=== PATIENT | male | born 1970 | race Caucasian/White ===

== ENCOUNTER 2024-06-01 21:43 | Emergency (ER) | payer OTHER ==
[2024-06-01] MEDS: hydrALAZINE HCL 20 MG/ML 1 ML VIAL IVP STA (22:15)
[2024-06-02] MEDS: OXYMETAZOLINE 0.05% NASL SPRAY 1 SPRAY BOTTLE NASAL STA (00:22)
--- NOTE | 2024-06-02 00:56 | ED ---
[facility] - General Chief complaint: ENT Stated complaint: Nose Bleed Time Seen by Provider: 06/01/24 21:55 Source: patient Mode of arrival: ambulatory - History of Present Illness Initial comments: 53-year-old male presenting with chief complaint of nosebleed. The bleeding has been ongoing for about 45 minutes. This is a second nosebleed today. Patient takes aspirin, no other blood thinners. He denies any injury or trauma. Predominantly from the left nostril. No weakness or dizziness. No headache or vision changes. No light sensitivity. No chest pain or difficulty breathing. - Related Data Allergies Allergy/AdvReac Type Severity Reaction Status Date / Time No Known Allergies Allergy Verified 06/01/24 21:49 Review of Systems ROS Statement: Those systems with pertinent positive or pertinent negative responses have been documented in the HPI. ROS Other: All systems not noted in ROS Statement are negative. Past Medical History Past Medical History: Atrial Fibrillation, Hypertension Past Surgical History: No Surgical Hx Reported Smoking Status: Former smoker Past Alcohol Use History: Occasional Past Drug Use History: None Reported General Exam Limitations: no limitations General appearance: alert, in no apparent distress Head exam: Present: atraumatic, normocephalic Eye exam: Present: normal appearance, EOMI ENT exam: Present: mucous membranes moist, other (Bleeding from the left nostril) Neck exam: Present: normal inspection. Absent: meningismus Respiratory exam: Absent: respiratory distress Cardiovascular Exam: Present: regular rate Neurological exam: Present: alert, oriented X3 Psychiatric exam: Present: normal affect, normal mood Skin exam: Present: normal color Course Vital Signs 06/01/24 06/01/24 06/01/24 21:44 22:19 22:35 Temperature 97.3 F L Pulse Rate 70 71 74 Respiratory 20 Rate Blood Pressure 188/101 168/101 177/84 O2 Sat by Pulse 97 Oximetry 06/01/24 06/02/24 22:57 01:28 Temperature 98.3 F Pulse Rate 89 79 Respiratory 18 Rate Blood Pressure 162/80 152/81 O2 Sat by Pulse 98 Oximetry Medical Decision Making - Medical Decision Making 53-year-old male presenting with chief complaint of nosebleed ongoing for up 45 minutes. His second nosebleed today. He takes aspirin and no other blood thinners. On exam bleeding is from the left nostril primarily. Patient is hypertensive upon arrival. He is given 10 mg of hydralazine and blood pressure steadily improved. 10 mg of labetalol was ordered for his blood pressure 162/80, however on reassessment blood pressure was 152/81 and labetalol was held. Afrin was applied to the nostrils and nasal clamp was applied for 10 minutes. Upon removal of the nasal clamp bleeding did not resume, he was observed for 15 minutes and the bleeding remained controlled. He was provided with nasal clamp and Afrin for home. Instructed to follow-up with his PCP and legal document assistant regarding his blood pressure. He will hold his aspirin tonight. Discharged home. Follow-up with PCP. Report back to ER with any new or worsening symptoms. Discussed return parameters and answered all questions. Patient conveyed verbal understanding and agreed to the plan. I discussed this case in detail with my attending Dr. Butler Was pt. sent in by a medical professional or institution (, PA, COST CONTROLLER, urgent care, hospital, or custodial...) When possible be specific @ -No Did you speak to anyone other than the patient for history (EMS, parent, family, police, friend...)? What history was obtained from this source @ -No Did you review nursing and triage notes (agree or disagree)? Why? @ -I reviewed and agree with nursing and triage notes Were old charts reviewed (outside hosp., previous admission, EMS record, old EKG, old radiological studies, urgent care reports/EKG's, custodial records)? Report findings @ -No old charts were reviewed Differential Diagnosis (chest pain, altered mental status, abdominal pain women, abdominal pain men, vaginal bleeding, weakness, fever, dyspnea, syncope, headache, dizziness, GI bleed, back pain, seizure, CVA, palpatations, mental h ealth, musculoskeletal)? @ -Differential includes nosebleed induced by local trauma, hypertension, structural abnormality, this is not an all-inclusive list EKG interpreted by me (3pts min.). @ -As above X-rays interpreted by me (1pt min.). @ -None done CT interpreted by me (1pt min.). @ -None done U/S interpreted by me (1pt. min.). @ -None done What testing was considered but not performed or refused? (CT, X-rays, U/S, labs)? Why? @ -None What meds were considered but not given or refused? Why? @ -Labetalol was given, however after medication was ordered blood pressure was reassessed and was within an acceptable range, labetalol was held Did you discuss the management of the patient with other professionals (professionals i.e. , PA, COST CONTROLLER, lab, RT, psych nurse, social services director, family lawyer, teacher, juvenile justice officer, case liner)? Give summary @ -No Was smoking cessation discussed for >3mins.? @ -No Was critical care preformed (if so, how long)? @ -No Were there social determinants of health that impacted care today? How? (Homelessness, low income, unemployed, alcoholism, drug addiction, transportation, low edu. Level, literacy, decrease access to med. care, [facility], rehab)? @ -No Was there de-escalation of care discussed even if they declined (Discuss DNR or withdrawal of care, Hospice)? DNR status @ -No What co-morbidities impacted this encounter? (DM, HTN, Smoking, COPD, CAD, Cancer, CVA, ARF, Chemo, Hep., AIDS, mental health diagnosis, sleep apnea, morbid obesity)? @ -None Was patient admitted / discharged? Hospital course, mention meds given and route, prescriptions, significant lab abnormalities, going to OR and other pertinent info. @ -Discharged home, see above for details Undiagnosed new problem with uncertain prognosis? @ -No Drug Therapy requiring intensive monitoring for toxicity (Heparin, Nitro, Insulin, Cardizem)? @ -No Were any procedures done? @ -No Diagnosis/symptom? @ -Epistaxis Acute, or Chronic, or Acute on Chronic? @ -Acute Uncomplicated (without systemic symptoms) or Complicated (systemic symptoms)? @ -Uncomplicated Side effects of treatment? @ -No Exacerbation, Progression, or Severe Exacerbation? @ -No Poses a threat to life or bodily function? How? (Chest pain, USA, CT, pneumonia, PE, COPD, DKA, ARF, appy, cholecystitis, CVA, Diverticulitis, Homicidal, Suicidal, threat to staff... and all critical care pts) @ -No Disposition Clinical Impression: Epistaxis Disposition: HOME SELF-CARE Condition: Good Instructions (If sedation given, give patient instructions): Nosebleed (ED) Additional Instructions: Follow-up with PCP. Report back to ER with any new or worsening symptoms. If you have a nosebleed at home blow your nose to clear the nostrils of any clots, apply 2 sprays of Afrin to the affected nostril, apply your nose clamp for 10 to 15 minutes Is patient prescribed a controlled substance at d/c from ED?: No Referrals: Nonstaff,Physician [Primary Care Provider] - 1-2 days Time of Disposition: 00:56
[2024-06-02] MEDS: LABETALOL 5 MG/ML VIAL MDV IVP STA (01:28)
[2024-06-02 01:30] VITALS: BP 152/81; PULSE 79; RESP 18; TEMP 98.3
== END 2024-06-02 01:30 | disposition home or self-care (01) ==
LOC: EC 21:43
DX: R04.0 Epistaxis (principal); Z87.891 Personal history of nicotine dependence
CPT/HCPCS: 30901; 99283; 96374; J0360